=== PATIENT | female | born 1980 | race Two or more races ===

== ENCOUNTER 2019-05-17 13:30 | Inpatient (IN) | payer OTHER ==
[2019-05-17] MEDS ORDERED: LACTATED RINGERS SOLUTION 1000 ML INFUS.BAG IV ONE (14:18)
--- NOTE | 2019-05-17 14:58 | HP ---
Past Medical History - Admission Chief Complaint: Contractions History of Present Illness: 38yo # 35.3wks by LMP/sono here with contractions that started last night, now getting stronger and more regular. No VB/LOF. +FM. 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 Culture just resulted positive, has yet to receive treatment PNC @ outside facility with transfer to [address] in April 2019- has had 2 visits History Source: Patient Limitations to Obtaining History: Language Barrier - Past Medical History VASCULAR NURSE: No: Alzheimer's, CVA, Dementia, Migraine, Multiple Sclerosis, Peripheral Neuropathy, Parkinson's, Seizure, Syncope, TIA, Vertigo, Other Cardiovascular: No: AFIB, Aneurysm, Aortic Insufficiency, Aortic Stenosis, CAD, CHF, Deep Vein Thrombosis, HTN, Hyperlipdemia, [place], Mitral Insufficiency, Mitral Stenosis, Murmur, Pulmonary Hypertension, Other Pulmonary: No: Asthma, Bronchitis, Cancer, COPD, O2 Dependent, Pneumonia, Previously Intubated, Pulmonary Embolus, Pulmonary Fibrosis, Sleep Apnea, Other Gastrointestinal: No: Ascites, Cancer, Constipation, Crohn's Disease, Diverticulitis, Diverticulosis, Esophageal Varices, Gastritis, GERD, GI Bleed, Hemorrhoids, Hiatal Hernia, Inflamatory Bowel Disease, Irritable Bowel Disease, Pancreatitis, Peptic Ulcer Disease, Ulcerative Colitis, Other Reproductive: No: Ectopic , Endometriosis, Fibroids, PID, Polycystic Ovary Syndrome, Postmenopausal, Other ...: 2 ...Para: 1 ...Term: 1 ...: 0 ...Spon : 0 ...Induced : 0 ...LMP: 09/11/18 ... Weeks Gestation by Dates: 35.3 ...EDC by Dates: 06/18/19 ...EDC by Sono: 06/21/19 Heme/Onc: Yes: Anemia Infectious Disease: No: AIDS, C-Diff, Herpes Zoster, HIV, MRSA, STD's, Tuberculosis, VREF, Other Psych: No: Addictions, Anxiety, Bipolar, Depression, Panic, Psychosis, Schizophrenia, Other Musculoskeletal: No: Bursitis, Chronic low back pain, Hemiparesis, Hemiplegia, Osteoarthritis, Paraplegia, Other Rheumatology: No: Fibromyalgia, Gout, Lupus, Rheumatoid Arthritis, Sarcoidosis, Vasculitis, Other - Past Surgical History Past Surgical History: Yes: Hx Myomectomy: No Hx Transabdominal Cerclage: No - Smoking History Smoking history: Never smoked Have you smoked in the past 12 months: No - Alcohol/Substance Use Hx Alcohol Use: No History of Substance Use: reports: None - Social History Usual Living Arrangement: Yes: With Significant Other Do you think of yourself as: Straight/Heterosexual ADL: Independent History of Recent Travel: No Home Medications - Allergies Allergies/Adverse Reactions: Allergies Allergy/AdvReac Type Severity Reaction Status Date / Time No Known Allergies Allergy Verified 05/17/19 14:12 - Home Medications Home Medications: Ambulatory Orders Ferrous Sulfate [Feosol] 325 mg PO DAILY 05/17/19 Pnv No.95/Ferrous Fum/Folic AC [ Vitamin Tablet] 1 each PO DAILY Review of Systems - Review of Systems Constitutional: denies: No Symptoms, Chills, Diaphoresis, Fever, Lethargy, Loss of Appetite, Malaise, Night Sweats, Unintentional Wgt. Loss, Weakness, Other Cardiovascular: denies: No Symptoms, Chest Pain, Edema, Palpitations, Shortness of Breath, Other Respiratory: denies: No Symptoms, Cough, Exercise Intolerance, Hemoptysis, Orthopnea, PND, Snoring, SOB, SOB on Exertion, Wheezing, Other Gastrointestinal: denies: No Symptoms, Abdominal Pain, Bloating, Constipation, Diarrhea, Dysphagia, Indigestion, Melena, Nausea, Rectal Bleeding, Vomiting, Vomiting Blood, Other Physical Exam - Maternity Vital Signs: Vital Signs Temperature 98.4 F 05/17/19 14:26 Pulse Rate 83 05/17/19 14:26 Respiratory Rate 05/17/19 14:26 Blood Pressure 128/86 05/17/19 14:26 O2 Sat by Pulse Oximetry (%) Constitutional: Yes: Well Nourished, No Distress, Calm - Abdominal Exam/OB Number of Fetuses: Single Presentation: Vertex Contractions: Yes Regularity: Regular Intensity: Moderate Monitor Mode: External Heart Rate Location: [facility] Category: I Accelerations: Non-Uniform Decelerations: None - Vaginal Exam/OB Vaginal Bleediing: No Speculum Exam: No Dilatation (cm): 1.5 Effacement (%): 0 Amniotic Membrane Status: Intact Presentation: Vertex/Position Station: -3 - Physical Exam Edema: No Imaging - Results Ultrasound: Report Reviewed Problem List - Problems (1) labor Code(s): O60.00 - LABOR WITHOUT DELIVERY, UNSPECIFIED TRIMESTER Assessment/Plan 38yo @ 35.3wks here in labor, prior C/S- desires ERCS Admit to L&D; received IVFs with no improvement in contractions NPO, IVFs Labs Garces, SCDs Ancef Labia inspected, no active vesicular/crusted over lesions on labia noted. Area was not cultured, only positive HSV 1/2 IGG titers noted. NICU/PEDS made aware. Risk of procedure reviewed including bleeding/infection and injury to bladder/ bowel/vessels/adenxa. All questions answered, consent signed. Proceed to OR for RLTCS Blaire Clarke MD
[2019-05-17] MEDS ORDERED: ELECTROLYTE-148 SOLN 1,000 ML IV SCH ×2 (15:00)
[2019-05-17] MEDS ORDERED: CITRIC ACID/SODIUM CITRATE 30 ML UNIT-DOSE CUP PO ONE (15:01)
[2019-05-17 15:23] VITALS: BMI 29.1
[2019-05-17 15:43] LABS: BASO % 0.3 % (0-2.0); EOS % 0.4 % (0-4.5); HEMATOCRIT 29.9 % (32.4-45.2); HEMOGLOBIN 9.8 GM/dL (10.7-15.3); LYMPH % 33.2 % (8-40); MCH 25.3 pg (25.7-33.7); MCHC 32.9 g/dl (32.0-36.0); MEAN CELL VOLUME 76.9 fl (80-96); MEAN PLT VOLUME 9.4 fl (7.5-11.1); MONO % 10.3 % (3.8-10.2); NEUT % 55.8 % (42.8-82.8); PLATELET COUNT 168 K/MM3 (134-434); RBC 3.89 M/mm3 (3.60-5.2); RDW 15.2 % (11.6-15.6); WHITE BLOOD COUNT 6.6 K/mm3 (4.0-10.0)
[2019-05-17 15:56] LABS: INR 0.94 (0.83-1.09); PROTHROMBIN TIME (PATIENT) 11.1 SEC (9.7-13.0)
--- NOTE | 2019-05-17 16:01 | PN ---
Progress Note (short form) - Note Progress Note: Patient ate small meal at 12pm, but now with increasing pain with contractions. Cannot delay 6-8 hours given po intake, will proceed now. Anesthesia aware. Blaire Clarke MD Problem List - Problems (1) labor Code(s): O60.00 - LABOR WITHOUT DELIVERY, UNSPECIFIED TRIMESTER
[2019-05-17 16:03] LABS: BLOOD UREA NITROGEN 10.2 mg/dL (7-18); CALCIUM 8.5 mg/dL (8.5-10.1); CREATININE 0.7 mg/dL (0.55-1.3)
[2019-05-17] MEDS ORDERED: morphine SULFATE/PF 0.5 MG/ML (2cc Syringe - QUVA) ONE (16:17)
[2019-05-17] MEDS ORDERED: PHENYLEPHRINE HCL 10 MG/1 ML SINGLE DOSE VIAL ONE (16:17)
[2019-05-17] MEDS ORDERED: OXYTOCIN 20 UNITS in 0.9% NS 40 UNIT/2,000 ML INFUS.BAG IV ONE (16:22)
[2019-05-17] MEDS ORDERED: IBUPROFEN 600 MG TABLET (FP) PO PRN (16:41)
[2019-05-17] MEDS ORDERED: ONDANSETRON 4 MG/2 ML VIAL IVPUSH PRN (16:41)
[2019-05-17] MEDS ORDERED: METHYLERGONOVINE MALEATE 0.2 MG/1 ML AMP IM PRN (17:16)
--- NOTE | 2019-05-17 17:16 | OP ---
Operative Note - Note: Operative Date: 05/17/19 Pre-Operative Diagnosis: 35 week , Labor, Prior , desires Elective Repeat Operation: Repeat Low Transverse Findings: VMI, SONALI position. No nuchal. No meconium. Apgars 9/9. Weight pending. Normal tubes and ovaries bilaterally Post-Operative Diagnosis: Same as Pre-op Surgeon: Kathleen Clarke Behavioral Medical Director: Scar Ford Anesthesia: Spinal Estimated Blood Loss (mls): 600 Drains, Volume Out (mls): 200 (clear urine) Operative Report Dictated: Yes
[2019-05-17] MEDS ORDERED: OXYTOCIN 20 UNITS in 0.9% NS 20 UNIT/1,000 ML INFUS.BAG IV SCH (17:30)
[2019-05-17] MEDS ORDERED: ONDANSETRON 4 MG/2 ML VIAL ONE (18:11)
[2019-05-17] MEDS: FERROUS SO4 325 MG TABLET (FP) PO SCH (18:17)
[2019-05-17] MEDS ORDERED: IBUPROFEN 800 MG/8 ML IJ IVPB ONE (22:59)
[2019-05-17] MEDS: IBUPROFEN 800 MG/8 ML IJ IVPB PRN (23:05)
[2019-05-18] MEDS ORDERED: OXYTOCIN 20 UNITS in 0.9% NS 20 UNIT/1,000 ML INFUS.BAG IV ONE ×2 (01:10→07:34)
[2019-05-18] MEDS ORDERED: oxyCODONE HCL 5 MG TABLET ONE ×3 (04:34→15:52)
[2019-05-18] MEDS: oxyCODONE HCL 5 MG TABLET PO PRN ×4 (04:40→21:17)
--- NOTE | 2019-05-18 06:36 | PN ---
Post Progress Note - Subjective Subjective: Pain controlled. No fevers/chills. Garces in place. No flatus or BM yet. Tolerating clears. Post Day: 1 Type of Delivery: Repeat C/S Vital Signs: Vital Signs Temperature 98.7 F 05/18/19 04:00 Pulse Rate 79 05/18/19 04:00 Respiratory Rate 18 05/18/19 06:00 Blood Pressure 100/56 L 05/18/19 04:00 O2 Sat by Pulse Oximetry (%) 100 05/17/19 18:15 Uterus: Yes: Fundus Firm Incision: Yes: Dressing dry and intact, Sutures intact Abdomen/GI: Yes: Abdomen soft, Tolerating PO Lochia: Yes: Rubra Lochia, amount: Small Extremities: Yes: Calves non-tender Perineum: Yes: Intact - Labs Labs: CBC WBC 6.6 K/mm3 (4.0-10.0) 05/17/19 15:05 RBC 3.89 M/mm3 (3.60-5.2) 05/17/19 15:05 Hgb 9.8 GM/dL (10.7-15.3) L 05/17/19 15:05 Hct 29.9 % (32.4-45.2) L 05/17/19 15:05 MCV 76.9 fl (80-96) L 05/17/19 15:05 MCH 25.3 pg (25.7-33.7) L 05/17/19 15:05 MCHC 32.9 g/dl (32.0-36.0) 05/17/19 15:05 RDW 15.2 % (11.6-15.6) 05/17/19 15:05 Plt Count 168 K/MM3 (134-434) 05/17/19 15:05 MPV 9.4 fl (7.5-11.1) 05/17/19 15:05 Absolute Neuts (auto) 3.7 K/mm3 (1.5-8.0) 05/17/19 15:05 Neutrophils % 55.8 % (42.8-82.8) 05/17/19 15:05 Lymphocytes % 33.2 % (8-40) 05/17/19 15:05 Monocytes % 10.3 % (3.8-10.2) H 05/17/19 15:05 Eosinophils % 0.4 % (0-4.5) 05/17/19 15:05 Basophils % 0.3 % (0-2.0) 05/17/19 15:05 Nucleated RBC % 0 % (0-0) 05/17/19 15:05 Problem List - Problems (1) labor Code(s): O60.00 - LABOR WITHOUT DELIVERY, UNSPECIFIED TRIMESTER Assessment/Plan 38yo @ 35.3wks here in labor, prior C/S- desires ERCS Routine PP care PO pain control Labs pending D/C Dez OOB,ambulate D/C to home POD#4 Blaire Clarke MD
[2019-05-18] MEDS ORDERED: IBUPROFEN 800 MG/8 ML IJ IVPB ONE ×2 (07:34→16:44)
[2019-05-18] MEDS: IBUPROFEN 800 MG/8 ML IJ IVPB PRN ×2 (07:47→16:53)
[2019-05-18] MEDS: FERROUS SO4 325 MG TABLET (FP) PO SCH ×2 (07:48→18:22)
[2019-05-18 10:49] LABS: BASO % 0.2 % (0-2.0); EOS % 0.5 % (0-4.5); HEMATOCRIT 32.3 % (32.4-45.2); HEMOGLOBIN 10.3 GM/dL (10.7-15.3); MEAN CELL VOLUME 78.3 fl (80-96); MEAN PLT VOLUME 9.1 fl (7.5-11.1); MONO % 7.4 % (3.8-10.2); NEUT % 72.9 % (42.8-82.8); PLATELET COUNT 172 K/MM3 (134-434); RBC 4.13 M/mm3 (3.60-5.2); RDW 15.7 % (11.6-15.6); WHITE BLOOD COUNT 8.2 K/mm3 (4.0-10.0)
[2019-05-18] MEDS: PRENATAL VITAMINS W/ FOLIC ACID TABLET (FP) PO SCH (10:58)
--- NOTE | 2019-05-18 11:11 | OP ---
DATE OF OPERATION: 05/17/2019 PREOPERATIVE DIAGNOSIS: 35-week , labor, prior delivery, desires elective repeat section. POSTOPERATIVE DIAGNOSIS: 35-week , labor, prior delivery, desires elective repeat section. PROCEDURE: Repeat low transverse section. ANESTHESIA: Spinal. INTRAVENOUS FLUIDS: Per anesthesia record. ESTIMATED BLOOD LOSS: 600. URINE OUTPUT: 200 mL clear urine. SURGEON: Kathleen Clarke MD RN COMMUNITY: NISH Cordon FINDINGS: Viable male , SONALI position. No nuchal. No meconium. Apgars 9, 9. Weight pending at time of delivery. Normal tubes and ovaries bilaterally. COMPLICATIONS: None. CONDITION: Stable to recovery room. NATURE OF THE PROCEDURE: After the appropriate consents were signed, patient was taken to the operating room. Spinal anesthesia was administered there. She was placed in a supine position. The abdomen was prepped and draped in a normal sterile fashion. A sterile Garces catheter was inserted prior to entry into the operating room. Time-out was performed after anesthesia was confirmed confirming correct patient, procedure. A Pfannenstiel incision was made through the prior incision, carried through to the underlying layers until the fascia was nicked in the midline. The fascia was extended laterally with the Kwong scissors. The inferior aspect of the fascia was grasped with the Monserrat clamps, tented upwards, and the rectus muscles dissected off bluntly and with the Kwong scissors. Attention was then paid to the superior aspect, which was taken down in a similar fashion. The rectus muscles were grasped in the midline, tented upwards and the rectus muscles with a scalpel. Peritoneum was then entered sharply with the scalpel and extended manually. Bladder blade was then inserted to accommodate room. The patient's right rectus muscles were dissected to facilitate delivery. The uterus was incised in a low transverse fashion. Clear amniotic fluid was noted. The infant's head was floating and not engaged. Kiwi vacuum was applied, checked for position with 2 pulls, no popoff. The 's head was delivered through the hysterotomy. Vacuum was then removed. The 's shoulder and body were delivered without difficulty. The cord was clamped and cut. The was handed off to the awaiting NICU staff. The uterus was then cleared manually of clot, debris, and placenta. The hysterotomy was closed in a single, imbricating, vertical suture of 1-0 Vicryl with good hemostasis. The adnexa were inspected bilaterally and noted to be normal. Hysterotomy was re-examined. Noted to be hemostatic. Bladder blade was then removed. The muscles were reapproximated with a 2-0 chromic. The fascia was closed with a 0 Vicryl. The subcutaneous tissue was closed with a 3-0 plain. The skin was closed with a 3-0 Biosyn. All sponge lap, needle counts were correct x3. The patient did receive Ancef at the start of the procedure. She was taken from the operating room to the recovery area in stable condition. MD GARRETT BRENNAN/[id number]
--- NOTE | 2019-05-18 13:30 | PN ---
Progress Note (short form) - Note Progress Note: Anesthesia postop note 38 y/o F s/p spinal anesthesia/duramorph for section. POD#1, vss, aaox3, sensory motor intact distally, some incisional pain. No anesthesia complications.
[2019-05-18] MEDS ORDERED: BISACODYL 10 MG SUPP.RECT RC PRN (17:17)
[2019-05-19] MEDS: oxyCODONE HCL 5 MG TABLET PO PRN ×5 (00:25→21:23)
[2019-05-19] MEDS: IBUPROFEN 600 MG TABLET (FP) PO PRN ×5 (00:25→21:22)
[2019-05-19] MEDS: SIMETHICONE 80 MG TAB.CHEW (FP) PO PRN ×4 (05:14→21:22)
[2019-05-19] MEDS: FERROUS SO4 325 MG TABLET (FP) PO SCH ×2 (08:54→17:07)
[2019-05-19] MEDS: PRENATAL VITAMINS W/ FOLIC ACID TABLET (FP) PO SCH (09:42)
--- NOTE | 2019-05-19 11:04 | PN ---
Post Progress Note - Subjective Subjective: c/o pain scale 6/10 before pain meds voiding without difficulty bm not done Post Day: 2 Type of Delivery: Primary C/S Vital Signs: Vital Signs Temperature 98.1 F 05/19/19 06:00 Pulse Rate 82 05/19/19 06:00 Respiratory Rate 20 05/19/19 06:00 Blood Pressure 127/82 05/19/19 06:00 O2 Sat by Pulse Oximetry (%) 100 05/17/19 18:15 Breast Exam: Yes: Soft, Other (BF , pumping the milk). No: Engorged Uterus: Yes: Fundus Firm, Fundus below umbilicus, Non-tender Incision: Yes: Sutures intact. No: Redness, Oozing Abdomen/GI: Yes: Abdomen soft, Passing flatus, Tolerating PO (diet). No: Abdominal Distention, Tender Lochia: Yes: Rubra Lochia, amount: Moderate Extremities: Yes: Calves non-tender, Edema (slight) Perineum: Yes: Intact Activity: Ambulating - Labs Labs: CBC WBC 8.2 K/mm3 (4.0-10.0) 05/18/19 10:20 RBC 4.13 M/mm3 (3.60-5.2) 05/18/19 10:20 Hgb 10.3 GM/dL (10.7-15.3) L 05/18/19 10:20 Hct 32.3 % (32.4-45.2) L 05/18/19 10:20 MCV 78.3 fl (80-96) L 05/18/19 10:20 MCH 25.0 pg (25.7-33.7) L 05/18/19 10:20 MCHC 32.0 g/dl (32.0-36.0) 05/18/19 10:20 RDW 15.7 % (11.6-15.6) H 05/18/19 10:20 Plt Count 172 K/MM3 (134-434) 05/18/19 10:20 MPV 9.1 fl (7.5-11.1) 05/18/19 10:20 Absolute Neuts (auto) 6.0 K/mm3 (1.5-8.0) 05/18/19 10:20 Neutrophils % 72.9 % (42.8-82.8) D 05/18/19 10:20 Lymphocytes % 19.0 % (8-40) D 05/18/19 10:20 Monocytes % 7.4 % (3.8-10.2) 05/18/19 10:20 Eosinophils % 0.5 % (0-4.5) 05/18/19 10:20 Basophils % 0.2 % (0-2.0) 05/18/19 10:20 Nucleated RBC % 0 % (0-0) 05/18/19 10:20 Problem List - Problems (1) Status post section routine follow-up Code(s): Z39.2 - ENCOUNTER FOR ROUTINE FOLLOW-UP; Z98.891 - HISTORY OF UTERINE SCAR FROM PREVIOUS SURGERY Assessment/Plan stable plan : ct po care
--- NOTE | 2019-05-19 11:55 | PATH ---
Surgical Pathology Report Patient Name: JASON DUMONT Med. Rec. 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 Electronically Signed Jay Sheffield M.D. Gross Description The specimen is received fresh labeled placenta and is a 413 gram, 13.5 x 12.5 x 4.5 cm. placenta with attached membranes and umbilical cord. The attached membranes are santana, translucent with focal opacities and insert marginally. The umbilical cord measures 41 cm. in length and averages 1 cm. in diameter. The cord inserts centrally. No true knots or strictures are identified. Cut surface of the umbilical cord reveals 3 vessels. The surface is wang-blue with minimal fibrin deposition and appropriate caliber vessels. The maternal surface is red-brown with focal defects. Sectioning reveals red-brown, spongy parenchyma. No lesions are identified. Assistant Manager Retail sections are submitted in three cassettes as follows: 1- membrane rolls and umbilical cord; 2-3- full thickness sections of placenta. 05/18/2019 formerly [facility]05/18/2019
[2019-05-20] MEDS: oxyCODONE HCL 5 MG TABLET PO PRN (04:50)
[2019-05-20] MEDS: IBUPROFEN 600 MG TABLET (FP) PO PRN ×4 (04:51→19:17)
[2019-05-20 07:05] LABS: BASO % 0.3 % (0-2.0); EOS % 0.9 % (0-4.5); HEMATOCRIT 28.8 % (32.4-45.2); HEMOGLOBIN 9.4 GM/dL (10.7-15.3); LYMPH % 32.4 % (8-40); MCH 25.3 pg (25.7-33.7); MCHC 32.8 g/dl (32.0-36.0); MEAN CELL VOLUME 77.2 fl (80-96); MEAN PLT VOLUME 9.2 fl (7.5-11.1); MONO % 8.3 % (3.8-10.2); NEUT % 58.1 % (42.8-82.8); PLATELET COUNT 197 K/MM3 (134-434); RBC 3.73 M/mm3 (3.60-5.2); RDW 15.4 % (11.6-15.6); WHITE BLOOD COUNT 8.3 K/mm3 (4.0-10.0)
--- NOTE | 2019-05-20 08:07 | PN ---
Post Progress Note - Subjective Subjective: c/o pain scale 5/10 c/o dizziness in AM today. voiding without difficulty c/o gaseous discomfort, BM not done Post Day: 3 Type of Delivery: Repeat C/S Vital Signs: Vital Signs Temperature 98.3 F 05/19/19 19:46 Pulse Rate 73 05/19/19 19:46 Respiratory Rate 20 05/19/19 19:46 Blood Pressure 118/72 05/19/19 19:46 O2 Sat by Pulse Oximetry (%) 100 05/17/19 18:15 Breast Exam: Yes: Soft, Other (pumping milk ). No: Engorged Uterus: Yes: Fundus Firm, Fundus below umbilicus, Non-tender Incision: Yes: Sutures intact. No: Redness, Oozing Abdomen/GI: Yes: Abdomen soft, Passing flatus, Tolerating PO (diet). No: Abdominal Distention, Tender Lochia: Yes: Rubra Lochia, amount: Moderate Extremities: Yes: Calves non-tender Perineum: Yes: Intact Activity: Ambulating - Labs Labs: CBC WBC 8.3 K/mm3 (4.0-10.0) 05/20/19 06:34 RBC 3.73 M/mm3 (3.60-5.2) 05/20/19 06:34 Hgb 9.4 GM/dL (10.7-15.3) L 05/20/19 06:34 Hct 28.8 % (32.4-45.2) L 05/20/19 06:34 MCV 77.2 fl (80-96) L 05/20/19 06:34 MCH 25.3 pg (25.7-33.7) L 05/20/19 06:34 MCHC 32.8 g/dl (32.0-36.0) 05/20/19 06:34 RDW 15.4 % (11.6-15.6) 05/20/19 06:34 Plt Count 197 K/MM3 (134-434) 05/20/19 06:34 MPV 9.2 fl (7.5-11.1) 05/20/19 06:34 Absolute Neuts (auto) 4.8 K/mm3 (1.5-8.0) 05/20/19 06:34 Neutrophils % 58.1 % (42.8-82.8) D 05/20/19 06:34 Lymphocytes % 32.4 % (8-40) D 05/20/19 06:34 Monocytes % 8.3 % (3.8-10.2) 05/20/19 06:34 Eosinophils % 0.9 % (0-4.5) 05/20/19 06:34 Basophils % 0.3 % (0-2.0) 05/20/19 06:34 Nucleated RBC % 0 % (0-0) 05/20/19 06:34 Problem List - Problems (1) Status post section routine follow-up Code(s): Z39.2 - ENCOUNTER FOR ROUTINE FOLLOW-UP; Z98.891 - HISTORY OF UTERINE SCAR FROM PREVIOUS SURGERY Assessment/Plan s/o repeat c/s day #[address] po care dulcolax suppository [place]
[2019-05-20] MEDS: ACETAMINOPHEN 325 MG TABLET (FP) PO PRN ×3 (09:27→19:18)
[2019-05-20] MEDS: PRENATAL VITAMINS W/ FOLIC ACID TABLET (FP) PO SCH (09:30)
[2019-05-20] MEDS: FERROUS SO4 325 MG TABLET (FP) PO SCH ×2 (09:30→18:12)
[2019-05-20] MEDS: SIMETHICONE 80 MG TAB.CHEW (FP) PO PRN ×3 (09:30→19:15)
[2019-05-21] MEDS: ACETAMINOPHEN 325 MG TABLET (FP) PO PRN ×2 (02:04→09:43)
[2019-05-21] MEDS: IBUPROFEN 600 MG TABLET (FP) PO PRN ×2 (02:05→09:41)
--- NOTE | 2019-05-21 09:09 | DS ---
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 Vital Signs: Vital Signs Temperature 97.8 F 05/20/19 22:00 Pulse Rate 66 05/20/19 22:00 Respiratory Rate 18 05/20/19 22:00 Blood Pressure 120/66 05/20/19 22:00 O2 Sat by Pulse Oximetry (%) 100 05/17/19 18:15 Constitutional: Yes: Well Nourished, Other (pain scale 5/10) Eyes: Yes: WNL HENT: Yes: WNL Neck: Yes: WNL Cardiovascular: Yes: WNL, Regular Rate and Rhythm Respiratory: Yes: WNL Gastrointestinal: Yes: WNL, Normal Bowel Sounds, Soft Renal/: No: CVA Tenderness - Left, CVA Tenderness - Right ....Post : Yes: Uterus firm, Uterus non-tender, Moderate lochia rubra Breast(s): Yes: WNL (bf , pumping the milk) Extremities: Yes: WNL. No: Calf Tenderness Edema: LLE: 1+, RLE: 1+ Integumentary: Yes: WNL Wound/Incision: Yes: Clean/Dry, Sutures Intact, Steri Strips, Open to air. No: Reddened Neurological: Yes: WNL Psychiatric: Yes: WNL, Alert, Oriented, Other (sometimes anxious) Labs: CBC, BMP 05/20/19 06:34 05/17/19 15:05 Delivery - Delivery Type of Anesthesia: Spinal Episiotomy/Laceration: None EBL (cc): 600 Delivery, Single - Stages of Labor Date 1st Stage Initiatied: 05/16/19 Time 1st Stage Initiated: 09:00 Date of Delivery: 05/17/19 Time of Delivery: 16:38 Time Placenta Delivered: 16:39 - Condition of Manager Apple/Fundraising Director Present: Yes Name: Manoj Shipman Infant Gender: Male Weight: 5 lb 5 oz Position: Right, OA Total Hours ROM (Hrs/Mins): 2 min - 1 Minute Total Score: 9 5 Minutes Total Score: 9 - Feeding Plan Initial Plan: Elected not to breastfeed exclusively throughout hospitalization Remarks - Remarks Remarks: po course uneventful discharge today Discharge Summary Problems reviewed: Yes Reason For Visit: LABOR Current Active Problems labor (Acute) Status post section routine follow-up (Acute) Condition: Stable - Instructions Diet, Activity, Other Instructions: Regular Diet Follow up in one week an incision check Referrals: Kathleen Clarke MD [Staff Physician] - Disposition: HOME - Home Medications Comprehensive Discharge Medication List: Ambulatory Orders Ferrous Sulfate [Feosol] 325 mg PO DAILY 05/17/19 Pnv No.95/Ferrous Fum/Folic AC [ Vitamin Tablet] 1 each PO DAILY Oxycodone HCl/Acetaminophen [Percocet 5-325 mg Tablet -] 1 - 2 tab PO Q6H PRN # 20 tab MDD 4 05/18/19
[2019-05-21] MEDS: FERROUS SO4 325 MG TABLET (FP) PO SCH (09:41)
[2019-05-21] MEDS: SIMETHICONE 80 MG TAB.CHEW (FP) PO PRN (09:42)
[2019-05-21] MEDS: PRENATAL VITAMINS W/ FOLIC ACID TABLET (FP) PO SCH (09:42)
[2019-05-21 11:50] VITALS: BP 129/80; PULSE 59; TEMP 98.9
== END 2019-05-21 12:00 | disposition home or self-care (01) | DRG 540 ==
LOC: JDEL 13:30 → JLDR 14:30 → J3W 05-18 16:55
PROVIDERS: ADMIT Obstetrics & Gynecology; ATTEND Obstetrics & Gynecology
PROC: 10D00Z1 Extraction of Products of Conception, Low, Open Approach (ICD-10-PCS; principal; 2019-05-17)
DX: O60.14X0 Preterm labor third trimester with preterm delivery third trimester, not applicable or unspecified (principal); O34.211 Maternal care for low transverse scar from previous cesarean delivery; N85.8 Other specified noninflammatory disorders of uterus; Z3A.35 35 weeks gestation of pregnancy; Z37.0 Single live birth
CPT/HCPCS: 36415; 80048; 85025; 85610; 85730; 86593; 86850; 86900; 86901; 87389; 88307-TC

== ENCOUNTER 2019-05-24 02:21 | Emergency (ER) | payer OTHER ==
--- NOTE | 2019-05-24 02:48 | PDOC ---
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 Symptoms started after repeat on 17 May 2019 at this facility. Reports blurry vision that started today. Emesis described as red, but likely from beet juice (friend told her this was good for dizziness). Indicates pain at post-op site. Last BM two days ago. Has been taking prescribed Percocet for pain without bowel regimen. Denies lower extremity swelling. OBHx: - A0 - Delivered second child via at 35 weeks for labor. Denies complicated course. No h/o of GDM, GHTN, or Pre-E. Medical Hx: - Denies past medical history. Does not take any prescription medications. Surgical Hx: - C- section x2, last 17 May 2019 Review of Systems: In addition to that documented in the HPI above, the additional ROS was obtained : Constitutional- Denies fevers or chills Head- Per HPI ENMT- Denies sore throat CV- Endorses chest pain and palpitations when vomiting Resp- Denies SOB GI- Per HPI - Reports increased urinary frequency without hematuria or dysuria MSK- Denies recent trauma Skin- Denies new rashes Neuro- Denies new numbness or tingling or weakness Endocrine- Denies polyuria Heme- Denies bleeding or bruising Physical Examination: Vital signs and nursing notes reviewed. Constitutional- Uncomfortable appearing adult female in no acute distress. Moaning and clutching her head. Found semi-fowlers on hospital bed. Head- Normocephalic. No obvious external signs of trauma. Eyes- PERRL. EOMI. Sclerae white. Conjunctiva moist and not injected. Ears- Hearing grossly intact. Nose- No nasal discharge. Neck- Supple, trachea is midline. Cardiovascular / Chest- Regular rate and regular rhythm. No murmur, rubs, clicks , or gallops. Peripheral pulses- radial pulses full. Respiratory- Breathing unlabored. Equal chest rise and fall. Clear to auscultation bilaterally. No stridor, no wheezing, no rhonchi. Gastrointestinal- abdomen is tender in RUQ with grimace and guarding. Mildly tender over lower abdominal post-op site, which appears clean, dry, and intact. Steri strips in place. No discharge, erythema, fluctuance, or induration. No pulsatile masses. No overlying skin lesions or obvious signs of trauma. Neuro- Alert and oriented x4. Moving all four extremities spontaneously. Skin- Warm, dry, and intact. Psych- Affect- tearful. Mood- normal. Speech was non-labored, non-pressured. MDM: 38 y/o female presenting with headache, vomiting, and abdominal pain s/p c- section on May. Afebrile. Vitals unremarkable for hypotension or tachycardia. Physical exam as described above. Will evaluate for pre-eclampsia given elevated triage BP. Low suspicion for ICH. Possible tension headache vs dehydration. Ordered Tylenol, Reglan, and IVFB for symptom relief. Reviewed laboratory data. No significant transaminitis. UA unremarkable for protein. Urine protein/creatinin ratio 0. Low suspicion for Pre-E. Will discuss further with pt's OB. 24 May 2019 05:55 AM Page sent for covering physician for Dr. Clarke through office answering service. Awaiting call back. 24 May 2019 06:16 AM Message left requesting call back on Dr. Clarke cell phone. 24 May 2019 06:50 AM Telephone discussion with Dr. Diaz. Verbally appraised of the pts HPI, ED course, and current plan of management. Suggested the pt should continue her vitals for the anemia. Agreed labs were not suggestive for Pre-E. Pt to call office and schedule appointment in two days for follow up. Discussed physical exam findings and laboratory data with pt. Answered all questions. Provided return precautions. pt expressed verbal understanding and agreement with plan to discharge home with outpatient follow up. Provided copies of todays results. Klaus Muhammad M.D., PGY2 Emergency Medicine Resident Past History - Past Medical History Allergies/Adverse Reactions: Allergies Allergy/AdvReac Type Severity Reaction Status Date / Time No Known Allergies Allergy Verified 05/24/19 02:31 Home Medications: Ambulatory Orders Ferrous Sulfate [Feosol] 325 mg PO DAILY 05/17/19 Pnv No.95/Ferrous Fum/Folic AC [ Vitamin Tablet] 1 each PO DAILY Oxycodone HCl/Acetaminophen [Percocet 5-325 mg Tablet -] 1 - 2 tab PO Q6H PRN # 20 tab MDD 4 05/18/19 Anemia: Yes Asthma: No Cancer: No Cardiac Disorders: No COPD: No Diabetes: No HTN: No Seizures: No Thyroid Disease: No - Psycho Social/Smoking Cessation Hx Smoking History: Never smoked Have you smoked in the past 12 months: No Information on smoking cessation initiated: No Hx Alcohol Use: No Drug/Substance Use Hx: No Hx Substance Use Treatment: No *Physical Exam - Vital Signs Last Vital Signs Temp Pulse Resp BP Pulse Ox 98.1 F 59 L 18 158/94 96 05/24/19 02:31 05/24/19 02:31 05/24/19 02:31 05/24/19 02:31 05/24/19 02:31 Vital Signs - Vital Signs #1 Time: 03:19 Blood Pressure: 146/92 BP Location: Right Arm Blood Pressure Position: Supine Pulse Rate: 58 Respiratory Rate: 16 O2 Sat by Pulse Oximetry (%): 98 Oxygen Delivery Method: Room Air ED Treatment Course - LABORATORY CBC & Chemistry Diagram: 05/24/19 03:00 05/24/19 03:00 - RADIOLOGY Radiograph Interpretation: HCT: THIS IS A PRELIMINARY REPORT FROM [facility] [employer]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 Clear visualized paranasal sinuses. Visualized mastoid air cells clear. One or more of the following dose reduction techniques were used: automated exposure control, adjustment of the mA and/or kV according to patient size, use of iterative reconstructive technique. THIS DOCUMENT HAS BEEN ELECTRONICALLY SIGNED Liza Lyman M.D. 05/24/2019 04:43 EST Discharge - Discharge Information Problems reviewed: Yes Clinical Impression/Diagnosis: anemia Headache Qualifiers: Headache type: unspecified Headache chronicity pattern: acute headache Intractability: not intractable Qualified Code(s): R51 - Headache Vomiting Qualifiers: Vomiting type: unspecified Vomiting Intractability: non-intractable Nausea presence: unspecified Qualified Code(s): R11.10 - Vomiting, unspecified Abdominal pain Qualifiers: Abdominal location: generalized Qualified Code(s): R10.84 - Generalized abdominal pain Condition: Improved Disposition: HOME - Admission No - Follow up/Referral Referrals: Kathleen Clarke MD [Staff Physician] - - Patient Discharge Instructions Patient Printed Discharge Instructions: DI for Abdominal Pain-Adult, DI for Vomiting -- Adult, DI for Headache Additional Instructions: Lo vieron hoy por dolor de ashish, vmitos y dolor abdominal. Al principio, turpin presin arterial estaba elevada, ashok mejor. Nissa radiografas y anlisis de arely no mostraron un problema potencialmente mortal. Llam y habl con el Dr. Emmanuel, quien trabaja con el Dr. Clarke. A param le gustara que llame al Dr. Tricia lomas y solicite perla ancelmo urgente para el prximo viernes. Dgale a la oficina que lo vieron en el departamento de emergencias hoy. Contina tomando tus vitaminas prenatales. Asegrese de mantenerse elias hidratado clifton los prximos rolle. Puede anni Tylenol o Advil de venta marcelo segn sea necesario para el dolor. Tmelo radha se indica en el prospecto. No exceda la dosis recomendada. Lee un seguimiento con turpin mdico OBGYN en los prximos 1-2 rolle. Deber llamar para hacer perla ancelmo. El nmero est incluido en yulia paquete. Se adjunta perla copia de los resultados de hoy a yulia paquete. Llvelo a la ancelmo para que trupin mdico pueda revisarlos. Dirjase al departamento de emergencias ms cercano si turpin afeccin empeora o siente que necesita perla evaluacin de emergencia adicional. Observe si empeora el dolor de ashish, los cambios en la visin, los vmitos persistentes o las fiebres. Estos son signos de un problema ms grave. You were seen today for a headache, vomiting, and abdominal pain. Your blood pressure was elevated at first but it improved. Your xrays and blood work did not show a life threatening problem. I called and spoke to Dr. Emmanuel, who works with Dr. Clarke. She would like you to call Dr. Clarke today and request an urgent appointment for this coming Wednesday. Tell the office you were seen in the emergency department today. Continue to take your vitamins. Be sure to stay well hydrated over the next several days. You can take over the counter Tylenol or Advil as needed for pain. Take as directed on the package insert. Do not exceed the recommended dosage. Follow up with your OBGYN doctor in the next 1-2 days. You will need to call to make an appointment. The number is included in this packet. A copy of todays results are attached to this packet. Take it to the appointment so your doctor can review them. Go to the nearest emergency department if your condition worsens or you feel like you need additional emergency evaluation. Watch for worsening headache, vision changes, persistent vomiting, or fevers. These are signs of a more serious problem. Print Language: PUERTO RICAN - Post Discharge Activity Work/Back to School Note: Back to Work
[2019-05-24 02:52] VITALS: TEMP 98.1; BMI 28.2
[2019-05-24] MEDS ORDERED: METOCLOPRAMIDE HCL INJECTION 10 MG/2 ML VIAL IVPUSH ONE (03:17)
[2019-05-24] MEDS ORDERED: ACETAMINOPHEN 1000 MG/100 ML VIAL (NON FORMULARY) IVPB ONE (03:17)
[2019-05-24] MEDS ORDERED: LACTATED RINGERS SOLUTION 1000 ML INFUS.BAG IV ONE (03:17)
--- NOTE | 2019-05-24 03:24 | PDOC ---
Attending Attestation - Resident Resident Name: Klaus Muhammad - ED Attending Attestation I have performed the following: I have examined & evaluated the patient, The case was reviewed & discussed with the resident, I agree w/resident's findings & plan - HPI HPI: 05/24/19 03:16 see resident hpi - Physicial Exam PE: 05/24/19 03:16 agree with resident exam - Medical Decision Making 05/24/19 03:19 38-year-old female approximately 5 days status post at 35 weeks for unknown reasons Patient now complaining of headache nausea and vomiting Blood pressure mildly elevated on arrival Will CT brain and order preeclampsia work-up
[2019-05-24] MEDS ORDERED: ACETAMINOPHEN INJECTION 100 ML IVPB ONE (03:28)
[2019-05-24] MEDS ORDERED: METOCLOPRAMIDE HCL INJECTION 10 MG/2 ML VIAL ONE (03:28)
[2019-05-24 03:55] LABS: EPI CELLS 1.1 /HPF (0-5/HPF); HYALINE CASTS 0 /lpf (0-8); URINE APPEARANCE CLEAR; URINE BACTERIA 17.4 /hpf (NEGATIVE); URINE BILIRUBIN NEGATIVE (NEGATIVE); URINE COLOR YELLOW; URINE GLUCOSE (UA) NEGATIVE (NEGATIVE); URINE KETONE NEGATIVE (NEGATIVE); URINE LEUK ESTERASE TRACE (NEGATIVE); URINE NITRITE NEGATIVE (NEGATIVE); URINE PROTEIN NEGATIVE (NEGATIVE); URINE RBC 1 /hpf (0-4); URINE UROBILINOGEN 0.2 mg/dL (0.2-1.0); URINE WBC 3 /hpf (0-5)
[2019-05-24 04:03] LABS: ALBUMIN 2.9 g/dl (3.4-5.0); BILIRUBIN,TOTAL 0.2 mg/dL (0.2-1); BLOOD UREA NITROGEN 9.8 mg/dL (7-18); CALCIUM 9.1 mg/dL (8.5-10.1); CREATININE 0.7 mg/dL (0.55-1.3); MAGNESIUM 2.2 mg/dL (1.8-2.4); PHOSPHOROUS 4.2 mg/dL (2.5-4.9); POTASSIUM 4.3 mmol/L (3.5-5.1); TOT PROT 7.2 g/dl (6.4-8.2)
[2019-05-24 04:30] LABS: BASO % 0.5 % (0-2.0); EOS % 2.3 % (0-4.5); HEMATOCRIT 29.5 % (32.4-45.2); HEMOGLOBIN 9.6 GM/dL (10.7-15.3); LYMPH % 39.3 % (8-40); MCH 25.1 pg (25.7-33.7); MCHC 32.5 g/dl (32.0-36.0); MEAN PLT VOLUME 9.3 fl (7.5-11.1); MONO % 11.6 % (3.8-10.2); NEUT % 46.3 % (42.8-82.8); PLATELET COUNT 279 K/MM3 (134-434); RBC 3.83 M/mm3 (3.60-5.2); RDW 15.6 % (11.6-15.6); WHITE BLOOD COUNT 5.5 K/mm3 (4.0-10.0)
[2019-05-24 04:43] LABS: URINE CREATININE < 13.0 mg/dL (30-150)
[2019-05-24 05:38] VITALS: PULSE 58
[2019-05-24] MEDS ORDERED: ACETAMINOPHEN 325 MG TABLET (FP) PO ONE (07:00)
[2019-05-24] MEDS ORDERED: ACETAMINOPHEN 325 MG TABLET (FP) ONE (07:08)
--- NOTE | 2019-05-24 10:36 | EKG ---
Test Reason : Blood Pressure : / mmHG Vent. Rate : 062 BPM Atrial Rate : 062 BPM P-R Int : 162 ms QRS Dur : 076 ms QT Int : 438 ms P-R-T Axes : 062 064 048 degrees QTc Int : 444 ms SINUS RHYTHM WITH OCCASIONAL PREMATURE VENTRICULAR COMPLEXES OTHERWISE NORMAL ECG NO PREVIOUS ECGS AVAILABLE Confirmed by SUSANA MATTHEWS MD ([id number]) on 05/24/2019 10:35:38 AM Referred By: Confirmed By:SUSANA MATTHEWS MD
[2019-07-02 19:51] VITALS: BP 146/92
== END 2019-05-24 07:30 | disposition home or self-care (01) ==
LOC: JER 02:21
PROC: 3E0F7GC Introduction of Other Therapeutic Substance into Respiratory Tract, Via Natural or Artificial Opening (ICD-10-PCS; principal; 2019-05-24)
PROC: 3E033NZ Introduction of Analgesics, Hypnotics, Sedatives into Peripheral Vein, Percutaneous Approach (ICD-10-PCS; 2019-05-24)
PROC: 3E033GC Introduction of Other Therapeutic Substance into Peripheral Vein, Percutaneous Approach (ICD-10-PCS; 2019-05-24)
DX: O90.81 Anemia of the puerperium (principal); R11.10 Vomiting, unspecified; R51 Headache; R10.84 Generalized abdominal pain
CPT/HCPCS: 36415; 70450-TC; 71045-TC-FY; 80053; 81003; 82570; 83690; 83735; 84100; 84156; 85025; 87086; 93005; 93010; 94640; 96374; 96375; 99283-25; J0131

== ENCOUNTER 2022-03-14 11:23 | Emergency (ER) | payer OTHER ==
[2022-03-14 11:38] VITALS: BP 119/77; PULSE 101; RESP 18; TEMP 98.4; BMI 27.1
[2022-03-14 14:12] LABS: BASO % 0.3 % (0-2.0); EOS % 0.1 % (0-4.5); HEMATOCRIT 35.7 % (32.4-45.2); HEMOGLOBIN 11.8 GM/dL (10.7-15.3); LYMPH % 23.2 % (8-40); MCH 25.4 pg (25.7-33.7); MCHC 33.2 g/dl (32.0-36.0); MEAN CELL VOLUME 76.6 fl (80-96); MEAN PLT VOLUME 8.3 fl (7.5-11.1); MONO % 7.9 % (3.8-10.2); NEUT % 68.5 % (42.8-82.8); PLATELET COUNT 240 10^3/uL (134-434); RBC 4.66 M/mm3 (3.60-5.2); WHITE BLOOD COUNT 7.6 K/mm3 (4.0-10.0)
[2022-03-14 14:34] LABS: CALCIUM 9.6 mg/dL (8.5-10.1)
[2022-03-14 14:35] LABS: PH,URINE 5.5 (5.0-8.0); URINE APPEARANCE CLEAR; URINE BILIRUBIN NEGATIVE (NEGATIVE); URINE COLOR YELLOW; URINE GLUCOSE (UA) NEGATIVE (NEGATIVE); URINE KETONE 1+ (NEGATIVE); URINE LEUK ESTERASE NEGATIVE (NEGATIVE); URINE NITRITE NEGATIVE (NEGATIVE); URINE PROTEIN NEGATIVE (NEGATIVE); URINE UROBILINOGEN 0.2 mg/dL (0.2-1.0)
[2022-03-14 14:35] LABS: ALBUMIN 3.8 g/dl (3.4-5.0)
[2022-03-14 14:38] LABS: CREATININE 0.7 mg/dL (0.55-1.3)
[2022-03-14 14:39] LABS: TOT PROT 7.5 g/dl (6.4-8.2)
[2022-03-14 14:40] LABS: BILIRUBIN,TOTAL 0.2 mg/dL (0.2-1)
[2022-03-14 14:43] LABS: BLOOD UREA NITROGEN 13.2 mg/dL (7-18)
== END 2022-03-14 18:55 | disposition home or self-care (01) ==
LOC: JER 11:23
DX: O26.851 Spotting complicating pregnancy, first trimester (principal); Z3A.01 Less than 8 weeks gestation of pregnancy
CPT/HCPCS: 36415; 76817-TC; 80053; 81003; 84702; 85025; 86850; 86900; 86901; 87070; 87077; 87086; 87205; 99284-25

== ENCOUNTER 2022-07-17 00:35 | Inpatient (IN) | payer OTHER ==
[2022-07-17] MEDS ORDERED: DEXTROSE 5%-LACTATED RINGERS 1,000 ML IV SCH (01:45)
[2022-07-17] MEDS ORDERED: ELECTROLYTE-148 SOLN 1,000 ML IV SCH (01:45)
[2022-07-17] MEDS ORDERED: BETAMET ACET/BETAMET NA PH 30 MG/5 ML VIAL IM ONE (01:46)
[2022-07-17] MEDS ORDERED: MAGNESIUM SULFATE 20GM/500ML - 20 GM/500 ML INFUS.BAG IVPB SCH (02:00)
[2022-07-17] MEDS ORDERED: AZITHROMYCIN IVPB 500 MG/250 ML BAG IVPB ONE ×2 (02:00→02:07)
[2022-07-17] MEDS ORDERED: MAGNESIUM 4GM/H20 - 4 GM/100 ML IVPB IVPB SCH (02:00)
[2022-07-17] MEDS ORDERED: BETAMET ACET/BETAMET NA PH 30 MG/5 ML VIAL ONE (02:06)
[2022-07-17 02:35] LABS: BASO % 0.2 % (0-2.0); EOS % 0.7 % (0-4.5); HEMATOCRIT 28.1 % (32.4-45.2); HEMOGLOBIN 9.2 GM/dL (10.7-15.3); LYMPH % 28.3 % (8-40); MCH 25.3 pg (25.7-33.7); MCHC 32.7 g/dl (32.0-36.0); MEAN CELL VOLUME 77.3 fl (80-96); MEAN PLT VOLUME 8.8 fl (7.5-11.1); MONO % 9.4 % (3.8-10.2); NEUT % 61.4 % (42.8-82.8); PLATELET COUNT 192 10^3/uL (134-434); RBC 3.64 M/mm3 (3.60-5.2); RDW 15.5 % (11.6-15.6); WHITE BLOOD COUNT 6.5 K/mm3 (4.0-10.0)
[2022-07-17 02:44] LABS: PH,URINE 7.5 (5.0-8.0); URINE APPEARANCE CLEAR; URINE BILIRUBIN NEGATIVE (NEGATIVE); URINE COLOR YELLOW; URINE GLUCOSE (UA) NEGATIVE (NEGATIVE); URINE KETONE NEGATIVE (NEGATIVE); URINE LEUK ESTERASE NEGATIVE (NEGATIVE); URINE NITRITE NEGATIVE (NEGATIVE); URINE PROTEIN NEGATIVE (NEGATIVE); URINE UROBILINOGEN 0.2 mg/dL (0.2-1.0)
[2022-07-17 02:46] LABS: INR 1.05 (0.83-1.09); PROTHROMBIN TIME (PATIENT) 12.2 SEC (9.7-13.0)
[2022-07-17 02:49] LABS: ACTIVATED PTT 25.3 SECONDS (25.2-36.5)
[2022-07-17] MEDS ORDERED: MAGNESIUM SULFATE 20GM/500ML - 20 GM/500 ML INFUS.BAG ONE (02:50)
[2022-07-17 02:58] LABS: CALCIUM 8.4 mg/dL (8.5-10.1)
[2022-07-17 02:59] LABS: ALBUMIN 2.7 g/dl (3.4-5.0); BLOOD UREA NITROGEN 6.6 mg/dL (7-18)
[2022-07-17] MEDS ORDERED: AMPICILLIN - 1 GM in SODIUM CHLORIDE 100 ML IVPB SCH (03:00)
[2022-07-17 03:01] VITALS: BMI 29.9
[2022-07-17 03:02] LABS: CREATININE 0.5 mg/dL (0.55-1.3)
[2022-07-17 03:03] LABS: BILIRUBIN,TOTAL 0.5 mg/dL (0.2-1); TOT PROT 6.2 g/dl (6.4-8.2)
[2022-07-17] MEDS ORDERED: AMPICILLIN SODIUM 1 GM VIAL ONE (03:19)
[2022-07-17 03:28] LABS: SYPHILIS W/ RPR CONF NON-REACTIVE (NONREACTIVE)
[2022-07-17 03:57] LABS: HIV INTERPRETATION NEGATIVE (NEGATIVE)
[2022-07-17 06:06] VITALS: BP 124/80; PULSE 97; RESP 18; TEMP 98
== END 2022-07-17 06:30 | disposition short-term general hospital (02) | DRG 563 ==
LOC: JDEL 00:35 → JLDR 01:20
PROVIDERS: ADMIT Obstetrics & Gynecology; ATTEND Obstetrics & Gynecology
DX: O60.02 Preterm labor without delivery, second trimester (principal); Z3A.25 25 weeks gestation of pregnancy
CPT/HCPCS: 36415; 80053; 81003; 85025; 85610; 85730; 86780; 86850; 86900; 86901; 87086; 87389; 87491; 87591; 87661; 96372; C9803-CS; U0003; U0005

== ENCOUNTER 2022-10-21 11:35 | Inpatient (IN) | payer OTHER ==
[2022-10-21] MEDS ORDERED: CITRIC ACID/SODIUM CITRATE 30 ML UNIT-DOSE CUP PO ONE (11:49)
[2022-10-21] MEDS ORDERED: ELECTROLYTE-148 SOLN 1,000 ML IV SCH (12:00)
[2022-10-21 13:31] VITALS: BMI 32.1
[2022-10-21] MEDS ORDERED: ONDANSETRON 4 MG/2 ML VIAL IVPUSH PRN ×2 (13:59→22:44)
[2022-10-21] MEDS ORDERED: morphine SULFATE/PF 1 MG/2 ML (2cc Syringe - QUVA) ONE (14:00)
[2022-10-21] MEDS ORDERED: MIDAZOLAM HCL 2 MG/2 ML SINGLE DOSE VIAL ONE (14:54)
[2022-10-21] MEDS ORDERED: METHYLENE BLUE 50 MG/10 ML AMPUL ONE (15:13)
[2022-10-21] MEDS ORDERED: OXYTOCIN 20 UNITS in 0.9% NS 20 UNIT/1,000 ML INFUS.BAG IV ONE ×2 (15:18→18:07)
[2022-10-21] MEDS ORDERED: KETAMINE HCL 500 MG/10 ML VIAL ONE (15:32)
[2022-10-21] MEDS ORDERED: GENTAMICIN SO4 80 MG/2 ML VIAL ONE (16:21)
[2022-10-21] MEDS ORDERED: FENTANYL CITRATE/PF 50 MCG/ML VIAL ONE (16:40)
[2022-10-21] MEDS ORDERED: SUCCINYLCHOLINE CHLORIDE 200 MG/10 ML SYRINGE ONE (16:46)
[2022-10-21] MEDS ORDERED: KETOROLAC TROMETHAMINE 30 MG/1 ML VIAL ONE (17:19)
[2022-10-21] MEDS ORDERED: IBUPROFEN 800 MG/8 ML IJ IVPB PRN (17:28)
[2022-10-21] MEDS ORDERED: METHYLERGONOVINE MALEATE 0.2 MG/1 ML AMP IM PRN (17:28)
[2022-10-21] MEDS: OXYTOCIN 20 UNITS in 0.9% NS 20 UNIT/1,000 ML INFUS.BAG IV SCH (18:30)
[2022-10-21] MEDS ORDERED: ONDANSETRON 4 MG/2 ML VIAL IM PRN (19:39)
[2022-10-21] MEDS ORDERED: ONDANSETRON 4 MG/2 ML VIAL ONE (19:47)
[2022-10-21] MEDS ORDERED: ONDANSETRON 4 MG/2 ML VIAL IVPUSH ONE (19:50)
[2022-10-21] MEDS: FERROUS SO4 325 MG TABLET (FP) PO SCH (22:03)
[2022-10-22] MEDS: OXYTOCIN 20 UNITS in 0.9% NS 20 UNIT/1,000 ML INFUS.BAG IV SCH (03:28)
[2022-10-22] MEDS: ACETAMINOPHEN 325 MG TABLET (FP) PO PRN (04:58)
[2022-10-22 07:38] LABS: BASO % 0.1 % (0-2.0); HEMATOCRIT 28.9 % (32.4-45.2); HEMOGLOBIN 9.3 GM/dL (10.7-15.3); LYMPH % 13.1 % (8-40); MEAN CELL VOLUME 77.9 fl (80-96); MEAN PLT VOLUME 10.1 fl (7.5-11.1); MONO % 7.5 % (3.8-10.2); NEUT % 79.3 % (42.8-82.8); PLATELET COUNT 171 10^3/uL (134-434); RBC 3.71 M/mm3 (3.60-5.2); RDW 16.5 % (11.6-15.6); WHITE BLOOD COUNT 10.2 K/mm3 (4.0-10.0)
[2022-10-22] MEDS: PRENATAL VITAMINS W/ FOLIC ACID TABLET (FP) PO SCH (09:19)
[2022-10-22] MEDS: FERROUS SO4 325 MG TABLET (FP) PO SCH ×2 (09:19→20:59)
[2022-10-22] MEDS: SIMETHICONE 80 MG TAB.CHEW (FP) PO PRN ×3 (09:19→20:56)
[2022-10-22] MEDS: oxyCODONE HCL 5 MG TABLET PO PRN ×2 (09:19→20:56)
[2022-10-22] MEDS: IBUPROFEN 600 MG TABLET (FP) PO PRN ×2 (12:06→18:28)
[2022-10-22] MEDS ORDERED: BISACODYL 10 MG SUPP.RECT RC PRN (17:28)
[2022-10-23] MEDS: ACETAMINOPHEN 325 MG TABLET (FP) PO PRN ×3 (01:20→20:08)
[2022-10-23] MEDS: SIMETHICONE 80 MG TAB.CHEW (FP) PO PRN ×4 (01:20→17:16)
[2022-10-23] MEDS: IBUPROFEN 600 MG TABLET (FP) PO PRN ×3 (05:54→17:16)
[2022-10-23] MEDS: AMOX TR/POT CLAV 875MG/125MG TABLETS (FP) PO SCH ×2 (10:05→17:57)
[2022-10-23] MEDS: FERROUS SO4 325 MG TABLET (FP) PO SCH ×2 (10:05→21:17)
[2022-10-23] MEDS: PRENATAL VITAMINS W/ FOLIC ACID TABLET (FP) PO SCH (10:05)
[2022-10-24] MEDS: IBUPROFEN 600 MG TABLET (FP) PO PRN ×3 (03:48→13:37)
[2022-10-24 08:15] LABS: BASO % 0.4 % (0-2.0); HEMATOCRIT 27.1 % (32.4-45.2); HEMOGLOBIN 8.8 GM/dL (10.7-15.3); LYMPH % 27.6 % (8-40); MCHC 32.4 g/dl (32.0-36.0); MEAN CELL VOLUME 77.3 fl (80-96); MEAN PLT VOLUME 9.3 fl (7.5-11.1); MONO % 8.9 % (3.8-10.2); NEUT % 62.1 % (42.8-82.8); PLATELET COUNT 205 10^3/uL (134-434); RBC 3.51 M/mm3 (3.60-5.2); WHITE BLOOD COUNT 6.8 K/mm3 (4.0-10.0)
[2022-10-24] MEDS: SIMETHICONE 80 MG TAB.CHEW (FP) PO PRN ×2 (08:15→13:37)
[2022-10-24] MEDS: AMOX TR/POT CLAV 875MG/125MG TABLETS (FP) PO SCH (09:00)
[2022-10-24] MEDS: FERROUS SO4 325 MG TABLET (FP) PO SCH (09:51)
[2022-10-24] MEDS: PRENATAL VITAMINS W/ FOLIC ACID TABLET (FP) PO SCH (09:51)
[2022-10-24 11:07] VITALS: BP 117/77; PULSE 84; RESP 18; TEMP 98
== END 2022-10-24 13:50 | disposition home or self-care (01) | DRG 540 ==
LOC: JLDR 11:35 → J3W 20:19
PROVIDERS: ADMIT Obstetrics & Gynecology; ATTEND Obstetrics & Gynecology
PROC: 0TJB0ZZ Inspection of Bladder, Open Approach (ICD-10-PCS; principal; 2022-10-21)
PROC: 0TQB0ZZ Repair Bladder, Open Approach (ICD-10-PCS; 2022-10-21)
PROC: 10D00Z1 Extraction of Products of Conception, Low, Open Approach (ICD-10-PCS; 2022-10-21)
PROC: 0TCB8ZZ Extirpation of Matter from Bladder, Via Natural or Artificial Opening Endoscopic (ICD-10-PCS; 2022-10-21)
DX: O34.211 Maternal care for low transverse scar from previous cesarean delivery (principal); O98.52 Other viral diseases complicating childbirth; O71.5 Other obstetric injury to pelvic organs; R31.9 Hematuria, unspecified; Z3A.39 39 weeks gestation of pregnancy; Z37.0 Single live birth
CPT/HCPCS: 36415; 80053; 85025; 85610; 86780; 86850; 86900; 86901; 88307-TC; Q9968

== ENCOUNTER 2024-05-11 14:21 | Emergency (ER) | payer OTHER ==
[2024-05-11 14:49] VITALS: BP 122/72; PULSE 82; RESP 18; BMI 28.8
[2024-05-11] MEDS ORDERED: ACETAMINOPHEN 500 MG TABLET (FP) ONE ×2 (15:33→16:12)
[2024-05-11] MEDS ORDERED: RABIES VACCINE (PCEC)/PF 2.5 UNIT/VIAL IM ONE (16:13)
[2024-05-11] MEDS ORDERED: RABIES IMMUNE GLOBULIN 300 UNITS/1 ML VIAL ONE (16:13)
[2024-05-11] MEDS ORDERED: DIPHTH,PERTUSS(ACELL),TET 0.5 ML DISP.SYRIN IM ONE ×3 (16:13→17:12)
[2024-05-11] MEDS ORDERED: RABIES IMMUNE GLOBULIN/PF 300 UNIT/ML (5 ML) VIAL IM ONE (16:33)
[2024-05-11] MEDS: ACETAMINOPHEN 500 MG TABLET (FP) PO ONE (16:56)
[2024-05-11] MEDS: DIPHTH,PERTUSS(ACELL),TET 0.5 ML DISP.SYRIN IM ONE (16:56)
[2024-05-11] MEDS: RABIES IMMUNE GLOBULIN/PF 300 UNIT/ML (5 ML) VIAL IM ONE (17:02)
[2024-05-11] MEDS: RABIES VACCINE (PCEC)/PF 2.5 UNIT/VIAL IM ONE (17:03)
[2024-05-11] MEDS ORDERED: BACITRACIN ZINC 15 GM TUBE TOPICAL OINTMENT TP ONE (17:11)
[2024-05-11] MEDS ORDERED: BACITRACIN ZINC 15 GM TUBE TOPICAL OINTMENT ONE (17:11)
== END 2024-05-11 17:29 | disposition home or self-care (01) ==
LOC: JERFT 14:21
PROC: 3E0234Z Introduction of Serum, Toxoid and Vaccine into Muscle, Percutaneous Approach (ICD-10-PCS; principal; 2024-05-11)
DX: S90.811A Abrasion, right foot, initial encounter (principal); W55.01XA Bitten by cat, initial encounter; Z23 Encounter for immunization
CPT/HCPCS: 90375; 90471; 90675; 90715; 99284-25